=== PATIENT | male | born 1990 | race Caucasian/White ===

== ENCOUNTER 2016-07-16 06:39 | Emergency (ER) | payer MEDICAID ==
--- NOTE | 2016-07-16 07:06 | Emergency Department Record ---
History of Present Illness - General Chief complaint: ENT Stated complaint: SWOLLEN JAW/THROAT Time Seen by Provider: 07/16/16 07:02 Source: Patient Mode of Arrival: Ambulatory Limitations: No limitations - History of Present Illness Initial comments: The patient is here due to pain and swelling to the jaw area for one day. He also has had a mild ST for one day. The patient denies any recent fever, body aches, VIDAL, AP or groin pain. The patient has no voice changes and no hoarseness. MD complaint: Other Onset/Timin -: Days(s) Location: Throat Severity: Mild Severity scale (1-10): 3 Quality: Aching Consistency: Constant, Intermittent Improves with: Rest Worsens with: Eating, Movement, Swallowing Context- Ear: Other Associated Symptoms: Cough - Related Data Home Medications Medication Instructions Recorded Confirmed Last Taken Diazepam [Diazepam] 5 mg PO Q8HR PRN 07/16/16 07/16/16 Unknown Ibuprofen [Ibuprofen] 600 mg PO Q8HR PRN 07/16/16 07/16/16 Unknown Previous Rx's Medication Instructions Recorded Prednisone [Prednisone 20Mg] 40 mg PO DAILY #10 tab 07/16/16 Allergies Allergy/AdvReac Type Severity Reaction Status Date / Time cefixime [From Suprax] Allergy HYPERSENSIT Verified 07/16/16 06:55 [facility] Travel Screening - Travel/Exposure Within Last 30 Days Have you traveled within the last 30 days?: No - Travel/Exposure Within Last Year Have you traveled outside the [place] in the last year?: No - Additonal Travel Details Have you been exposed to anyone with a communicable illness?: No Review of Systems Constitutional: Denies: Chills, Fever, Malaise Eyes: Denies: Eye discharge ENT: Denies: Congestion Respiratory: Denies: Cough Past Medical History - SOCIAL HISTORY Smoking Status: Current every day smoker Alcohol Use: None Drug Use: Rare Drug Use Detail:: Marijuana - RESPIRATORY Hx Respiratory Disorders: Yes Hx Asthma: Yes (childhood) - CARDIOVASCULAR Hx Cardio Disorders: No - NEURO Hx Neuro Disorders: No - GI Hx GI Disorders: No - Hx Genitourinary Disorders: No - ENDOCRINE Hx Diabetes: No Hx Thyroid Disease: No - MUSCULOSKELETAL Hx Musculoskeletal Disorders: No - PSYCH Hx Psych Problems: Yes Hx Anxiety: Yes - HEMATOLOGY/ONCOLOGY Hx Hematology/Oncology Disorders: No Family Medical History Any Significant Family History?: No Physical Exam - General General Appearance: Alert, Oriented x3, Cooperative, No acute distress - Head Head exam: Atraumatic, Normocephalic, Normal inspection - Eye Eye exam: Normal appearance, PERRL - ENT ENT exam: TM's normal bilaterally, Other (There is bilateral mild parotid swelling and tenderness.). negative: Normal exam, Normal orophraynx Throat exam: Tonsillar erythema (mild.). negative: Normal inspection, Tonsillomegaly, Tonsillar exudate - Neck Neck exam: Normal inspection, Full ROM, Lymphadenopathy (There is mild to mod submandibular swelling and tenderness.). negative: Meningismus, Tenderness - Respiratory Respiratory exam: Normal lung sounds bilaterally. negative: Respiratory distress - Cardiovascular Cardiovascular Exam: Regular rate, Normal rhythm, Normal heart sounds Course Vital Signs 07/16/16 06:47 Temperature 98.6 F Pulse Rate [ 72 Pulse Ox Probe] Respiratory 16 Rate Blood Pressure 126/100 [Left Arm] Pulse Ox 96 - Reevaluation(s) Reevaluation #1: The patient is doing much better at this time and feels the swelling is improving already. I did explain the lab tests to him and will place him on Prednisone for 5 days due to the inflammation. 07/16/16 07:55 07/16/16 07:58 Medical Decision Making - Data Complexity MDM Data: Labs Ordered and/or Reviewed - Lab Data Result diagrams: 07/16/16 07:10 07/16/16 07:10 Disposition Disposition: Discharge Clinical Impression: Lymphadenopathy Disposition: Home, Self-Care Condition: (1) Good Instructions: Lymphadenopathy (ED) Additional Instructions: Please continue the Ibuprofen for pain and add the Prednisone. Please see a family doctor if not better in 3-5 days. Return to the ER for any increased swelling, pain, fever, or any sore throat. Prescriptions: Prednisone [Prednisone 20Mg] 40 mg PO DAILY #10 tab Forms: Patient Portal Access Time of Disposition: 07:58
[2016-07-16 07:23] LABS: BASO % 0.3 % (0-6); EOS % 1.1 % (0-6); GRAN % 71.7 % (47-80); HEMATOCRIT 43.8 % (42.0-52.0); HEMOGLOBIN 15.3 gm/dl (14.0-18.0); LYMPH % 17.3 % (16-45); MEAN CELL VOLUME 91.1 fl (81-97); MEAN CORPUSCULAR HEMOGLOBIN 31.8 pg (27-33); MEAN CORPUSCULAR HGB CONC 34.9 g/dl (32-36); MEAN PLATELET VOLUME 9.2 fl (7.4-10.4); MONO % 9.6 % (0-9); PLATELET COUNT 219 K/uL (130-400); RED BLOOD COUNT 4.81 M/uL (4.40-5.70); RED CELL DISTRIBUTION WIDTH 12.3 % (11.5-14.5); WHITE BLOOD COUNT W/O DIFF 14.5 K/uL (4.2-12.2)
[2016-07-16 07:42] LABS: ALB/GLOB RATIO 1.4 (1.1-1.8); ALBUMIN 4.2 gm/dL (3.5-5.0); ALKALINE PHOSPHATASE 88 U/L (38-126); ALT/SGPT 32 U/L (21-72); AST/SGOT 33 U/L (17-59); BILIRUBIN,TOTAL 0.41 mg/dL (0.2-1.3); BLOOD UREA NITROGEN 18 mg/dL (9-20); C-REACTIVE PROTEIN 1.8 mg/dL (0.0-0.9); CREATININE 0.9 mg/dL (0.66-1.25); EST GLOMERULAR FILTRATION RATE > 60 ml/min; GLUCOSE,RANDOM 114 mg/dL (70-110); TOTAL PROTEIN 7.2 gm/dL (6.3-8.2)
[2016-07-17 17:35] LABS: IgM INDEX 2.1
== END 2016-07-16 08:25 | disposition home or self-care (01) ==
LOC: ER 06:39
DX: R59.0 Localized enlarged lymph nodes (principal); J02.9 Acute pharyngitis, unspecified
CPT/HCPCS: 80053; 85025; 86140; 86308; 87880; 99283

== ENCOUNTER 2018-09-11 07:33 | Emergency (ER) | payer MEDICAID ==
[2018-09-11] MEDS ORDERED: CLINDAMYCIN 150 MG CAP PO ONE (07:41)
[2018-09-11] MEDS ORDERED: Diph,Pert(Acell),Tet Vac 0.5 ML SYR IM ONE (07:41)
--- NOTE | 2018-09-11 07:51 | Emergency Department Record ---
History of Present Illness - General Chief Complaint: Ankle/Foot Injury Stated Complaint: STEPPED ON SOMETHING RIGHT FOOT Time Seen by Provider: 09/11/18 07:38 Source: Patient Mode of Arrival: Ambulatory Limitations: No limitations - History of Present Illness Initial Comments: 28 yo male presents with right foot pain. He was at [employer] September 05 and stepped on something in the slater. He cleaned the initial wound. He is unsure of what injured his foot. The area seemed improved by last Saturday. He then developed pain again in the last one day. He is unsure of the timing of his last tetanus shot. No fevers. Complaint: Foot injury -: Days(s) (6) Injury: Foot: Right Type of Injury: Puncture wound Place: Other ([place]) Improves With: Immobilization Worsens With: Movement, Palpation Context: Other (Walking in a ring) - Related Data Previous Rx's Medication Instructions Recorded Clindamycin HCl 300 mg PO QID #28 capsule 09/11/18 Ibuprofen [Motrin 600Mg] 600 mg PO Q6H #20 tablet 09/11/18 Allergies Allergy/AdvReac Type Severity Reaction Status Date / Time cefixime [From Suprax] Allergy HYPERSENSIT Verified 09/11/18 07:40 IVITY Review of Systems Constitutional: Denies: Chills, Fever, Malaise, Weakness Eyes: Denies: Eye discharge ENT: Denies: Congestion, Throat pain Respiratory: Denies: Cough Cardiovascular: Denies: Chest pain, Syncope Endocrine: Denies: Fatigue Gastrointestinal: Denies: Abdominal pain, Diarrhea, Nausea, Vomiting Genitourinary: Denies: Dysuria, Frequency, Hematuria Musculoskeletal: Reports: Joint swelling. Denies: Arthralgia, Back pain, Myalgia, Neck pain Skin: Reports: Change in color. Denies: Bruising, Rash Neurological: Denies: Numbness, Tingling, Weakness Psychiatric: Denies: Anxiety Hematological/Lymphatic: Denies: Easy bleeding, Easy bruising Past Medical History - SOCIAL HISTORY Smoking Status: Current every day smoker Drug Use: Rare Drug Use Detail:: Marijuana - RESPIRATORY Hx Respiratory Disorders: Yes Hx Asthma: Yes (childhood) - CARDIOVASCULAR Hx Cardio Disorders: No - NEURO Hx Neuro Disorders: No - GI Hx GI Disorders: No - Hx Genitourinary Disorders: No - ENDOCRINE Hx Diabetes: No Hx Thyroid Disease: No - MUSCULOSKELETAL Hx Musculoskeletal Disorders: No - PSYCH Hx Psych Problems: Yes Hx Anxiety: Yes - HEMATOLOGY/ONCOLOGY Hx Hematology/Oncology Disorders: No Physical Exam - General General Appearance: Alert, Oriented x3, Cooperative, No acute distress Limitations: No limitations - Head Head exam: Atraumatic, Normal inspection - Eye Eye exam: Normal appearance - ENT ENT exam: Normal exam Ear exam: Normal external inspection Nasal Exam: Normal inspection Mouth exam: Normal external inspection - Cardiovascular Peripheral Pulses: 2+: Dorsalis Pedis (R) - Extremities Extremities exam: Full ROM, Tenderness, Other (Generally the foot on inspection has very minimal swelling, there is faint erythema medial foot, no fluctuance, mild current findings). negative: Normal inspection Image of Feet: 1 - 3mm scab, minimal local swelling 2 - faint erythema - Neurological Neurological exam: Alert, Oriented X3 - Psychiatric Psychiatric exam: Normal affect, Normal mood. negative: Agitated, Anxious - Skin Skin exam: Erythema (very mild medial foot) Course - Reevaluation(s) Reevaluation #1: XR was negative for FB or acute abnormality 09/11/18 08:25 We discussed at length NWB, signs of increased infection, reasons for immediate return or to be seen immediately 09/11/18 08:33 I JESSICA Fernández of Podiatry. He agrees with follow up first of the week in the Podiatry [facility] 09/11/18 08:49 Disposition Disposition: Discharge Clinical Impression: Puncture, Cellulitis Disposition: Home, Self-Care Condition: (1) Good Instructions: Puncture Wound (ED) Additional Instructions: Avoid walking or weight bearing Call Dr Fernández for a follow up appointment of the foot Take the antibiotics as directed until gone Return or be seen sooner if worse, fever, streaking up the leg Prescriptions: Clindamycin HCl 300 mg PO QID #28 capsule Ibuprofen [Motrin 600Mg] 600 mg PO Q6H #20 tablet Referrals: Marcio Fernández D.P.M. [DOCTOR OF PODIATRY MEDICINE] - Forms: Patient Portal Access Time of Disposition: 08:29 Quality - Quality Measures Quality Measures: N/A - Blood Pressure Screening Does Patient Have Any of the Following: No Blood Pressure Classification: Hypertensive Reading Systolic Measurement: 132 Diastolic Measurement: 101 Screening for High Blood Pressure: < Pre-Hypertensive BP, F/U Documented > [G8950] Pre-Hypertensive Follow-up Interventions: Referral to alternative/primary care provider.
== END 2018-09-11 08:52 | disposition home or self-care (01) ==
LOC: ER 07:33
DX: S91.331A Puncture wound without foreign body, right foot, initial encounter (principal); L03.115 Cellulitis of right lower limb; W22.8XXA Striking against or struck by other objects, initial encounter; Y92.828 Other wilderness area as the place of occurrence of the external cause; F17.210 Nicotine dependence, cigarettes, uncomplicated
CPT/HCPCS: 90715; 96372; 99283